=== PATIENT | male | born 1945 | race Caucasian/White ===

== ENCOUNTER 2022-11-03 05:23 | Emergency (ER) | payer MEDICARE, SELFPAY ==
--- NOTE | ~2022-11-03 | CT_ITS ---
EXAMINATION: CT ABDOMEN AND PELVIS WITHOUT CONTRAST CLINICAL INFORMATION: Left flank pain. History of prostate cancer. COMPARISON: None available. TECHNIQUE: Multidetector volumetric imaging was performed from the superior aspect of the liver through the pubic symphysis. Sagittal and coronal reformatted images were obtained on the technologist's workstation. This CT examination was performed using dose optimization techniques as appropriate, variously including the following: *Automated exposure control *Adjustment of mA and/or kV according to patient size (this includes techniques or standardized protocols for targeted exams where dose is matched to indication/reason for exam; i.e. extremities or head) *Use of iterative reconstruction technique DLP: 360 mGy-cm FINDINGS: LUNG BASES: The visualized lung bases are unremarkable. LIVER, GALLBLADDER, AND BILIARY TREE: The liver is normal in size, shape, and attenuation. No biliary ductal dilatation. There is a cyst identified in the caudate.. Multiple small stones layering in the gallbladder lumen. No wall thickening or inflammation. PANCREAS: Unremarkable. SPLEEN: Unremarkable. ADRENAL GLANDS: Unremarkable. KIDNEYS AND URETERS: The kidneys are normal in size, shape, and attenuation. No hydronephrosis, hydroureter, or calculi seen. No perinephric stranding. BLADDER: Partially distended without wall thickening. Air-fluid level internally. GASTROINTESTINAL TRACT: Moderate hiatal hernia. Normal caliber small bowel. No obstruction. Colonic diverticulosis present which is greatest at the sigmoid colon. No diverticulitis. No free air or free fluid. ABDOMINAL WALL: No significant hernia is appreciated. LYMPH NODES: Normal. VASCULAR: Infrarenal abdominal aorta measures up to 2.5 cm in AP dimension with mild atherosclerotic calcification. Proximal to this the aorta measures 1.8 cm. No specific follow-up recommended at this size. PELVIC VISCERA: Prostate not definitively seen. OSSEOUS STRUCTURES: No acute or suspicious osseous abnormality. Degenerative change throughout the spine and of both hips. CT/CT abdomen pelvis wo IV con IMPRESSION: 1. No acute findings in the abdomen or pelvis. No hydronephrosis or nephrolithiasis. 2. Cholelithiasis without evidence of acute cholecystitis. 3. Moderate hiatal hernia. 4. Colonic diverticulosis without diverticulitis. Fleischner guidelines were followed.
[2022-11-03 05:46] VITALS: BP 162/57; PULSE 58; RESP 18; TEMP 36.8; O2SAT 99; BMI 21.4
[2022-11-03 05:50] VITALS: BP 162/57; PULSE 58; RESP 18; TEMP 36.8; O2SAT 98
--- NOTE | 2022-11-03 05:59 | ED.BACK ---
HPI - Back Pain/Injury General Chief Complaint: Back Pain/Injury Stated Complaint: Back Pain Time Seen by Provider: 11/03/22 05:59 Related Data Previous Rx's Medication Instructions Recorded tramadol 50 mg tablet 50 mg PO Q6H PRN pain #20 tabs 11/03/22 Allergies Allergy/AdvReac Type Severity Reaction Status Date / Time No Known Allergies Allergy Verified 11/03/22 06:25 PMFSH Social History Social History Alcohol intake: former Smoked in Last 30 Days: No Substance Use Type: Marijuana Substance Use Frequency: Daily Last Used Substance: Days (ago) Advance Directives: No Advance Directives Information Provided: No Physical Exam Vital Signs: Vital Signs: Last Vital Signs Temp 98.3 F 11/03/22 05:50 Pulse 58 11/03/22 05:50 Resp 18 11/03/22 06:48 BP 162/57 H 11/03/22 05:50 Pulse Ox 98 11/03/22 05:50 O2 Del Method Room Air 11/03/22 05:50 BMI result Body Mass Index 21.4 Medications Administered Discontinued Medications Generic Name Dose Route Start Last Admin Trade Name Freq PRN Reason Stop Dose Admin Morphine Sulfate 4 mg 11/03/22 06:25 11/03/22 06:48 Morphine Sulfate 2 Mg/Ml Cartridge IVPUSH 11/03/22 06:26 4 mg ONCE ONE Administration Protocol Ondansetron HCl 4 mg 11/03/22 06:25 11/03/22 06:47 Ondansetron Hcl 4 Mg/2 Ml Vial IVPUSH 11/03/22 06:26 4 mg ONCE ONE Administration Medical Decision Making Medical Decision Making [facility] Narrative: Patient with low back pain likely muscular strain CT scan negative for acute pathology UA is pending but patient denied any urinary symptoms. Will discharge patient home on tramadol Lab Data [facility] Lab Attestation statement: I reviewed the patient's lab results. 11/03/22 06:00 11/03/22 06:00 Labs: Lab Results 11/03/22 11/03/22 Range/Units 06:00 06:00 WBC 7.0 (4.8-10.8) X10*3/uL RBC 4.54 L (4.60-5.80) X10*6/uL Hgb 13.8 L (14.0-18.0) g/dl Hct 39.9 L (42.0-52.0) % MCV 87.9 (80.0-98.0) fL MCH 30.4 (27.0-33.0) pg MCHC 34.6 (31.0-36.0) g/dl RDW 12.5 (11.0-16.0) % Plt Count 185 (160-400) X10*3/uL MPV 9.9 (9.4-12.4) fL Immature Gran % (Auto) 0.1 (0.0-0.4) % Neut % (Auto) 56.4 (45-73) % Lymph % (Auto) 32.6 (20-40) % [place] % (Auto) 10.2 (2-11) % Eos % (Auto) 0.3 (0-4) % Baso % (Auto) 0.4 (0-2) % Lymph # (Auto) 2.3 (1.2-4.9) X10*3/uL [place] # (Auto) 0.7 (0.1-1.2) X10*3/uL Eos # (Auto) 0.0 (0.0-0.4) X10*3/uL Baso # (Auto) 0.0 (0.0-0.2) X10*3/uL Abs Immat Gran (auto) 0.01 (0.00-0.03) X10*3/uL Absolute Neuts (auto) 3.9 (2.0-8.3) x10*3/uL Absolute Nucleated RBC 0.000 (0.0-0.012) X10*3/uL Nucleated RBC % (auto) 0.0 (0.0-0.2) /100WBC Sodium 135 (135-145) mmol/L Potassium 4.5 (3.3-5.1) mmol/L Chloride 100 (96-108) mmol/L Carbon Dioxide 24 (22-29) mmol/L Anion Gap 16 (12-20) BUN 17 H (9-16) mg/dL Creatinine 0.95 (0.5-1.4) mg/dL Estim Creat Clear Calc 62.5 Estimated GFR > 60 Random Glucose 97 (60-115) mg/dL Calcium 9.5 (8.4-10.2) mg/dL Total Bilirubin 1.2 H (0.0-1.0) mg/dL AST 26 (5-37) U/L ALT 9 (0-40) U/L Alkaline Phosphatase 46 (39-117) U/L Total Protein 7.1 (6.5-8.0) g/dL Albumin 4.4 (3.5-5.0) g/dL Radiology Impression Discussion of test interpretation with radiology: I have reviewed the radiologist's reading. Radiologist Impression: CT/CT abdomen pelvis wo IV con IMPRESSION: 1.? No acute findings in the abdomen or pelvis. No hydronephrosis or nephrolithiasis. 2.? Cholelithiasis without evidence of acute cholecystitis. 3.? Moderate hiatal hernia. 4.? Colonic diverticulosis without diverticulitis. Discharge Plan Discharge Clinical Impression: Strain of lumbar region Patient Disposition: Home, Self-Care Instructions: Low Back Strain (ED) Additional Instructions: Take pain medication as prescribed Follow-up with PCP if not better Prescriptions: New tramadol 50 mg tablet 50 mg PO Q6H PRN (Reason: pain) Qty: 20 0RF
[2022-11-03 06:04] LABS: MANUAL DIFF FLAG NO
[2022-11-03 06:06] LABS: Basophils Percent Auto 0.4 % (0-2); Eosinophils Percent Auto 0.3 % (0-4); Hematocrit 39.9 % (42.0-52.0); Hemoglobin 13.8 g/dl (14.0-18.0); Imm Gran Abs Auto 0.01 X10*3/uL (0.00-0.03); Imm Gran Pct Auto 0.1 % (0.0-0.4); Lymphocytes Absolute Auto 2.3 X10*3/uL (1.2-4.9); Lymphocytes Percent Auto 32.6 % (20-40); Mean Corpuscular HGB Conc 34.6 g/dl (31.0-36.0); Mean Corpuscular Hemoglobin 30.4 pg (27.0-33.0); Mean Corpuscular Volume 87.9 fL (80.0-98.0); Mean Platelet Volume 9.9 fL (9.4-12.4); Monocytes Absolute Auto 0.7 X10*3/uL (0.1-1.2); Monocytes Percent Auto 10.2 % (2-11); Neutrophils Absolute Auto 3.9 x10*3/uL (2.0-8.3); Neutrophils Percent Auto 56.4 % (45-73); Platelet Count 185 X10*3/uL (160-400); Red Blood Count 4.54 X10*6/uL (4.60-5.80); Red Cell Distribution Width 12.5 % (11.0-16.0)
[2022-11-03 06:24] LABS: Alanine Aminotransferase 9 U/L (0-40); Albumin Level 4.4 g/dL (3.5-5.0); Alkaline Phosphatase 46 U/L (39-117); Anion Gap 16 (12-20); Aspartate Amino Transferase 26 U/L (5-37); Bilirubin Total 1.2 mg/dL (0.0-1.0); Blood Urea Nitrogen 17 mg/dL (9-16); Calcium 9.5 mg/dL (8.4-10.2); Carbon Dioxide 24 mmol/L (22-29); Chloride 100 mmol/L (96-108); Creatinine Clr Calc Pharmacy 62.5; Estimated Glomerular Filt Rate > 60; Glucose Random 97 mg/dL (60-115); Potassium 4.5 mmol/L (3.3-5.1); Sodium 135 mmol/L (135-145); Total Protein 7.1 g/dL (6.5-8.0)
[2022-11-03] MEDS: ondansetron HCL 4 MG/2 ML VIAL IVPUSH (06:47)
[2022-11-03 06:48] VITALS: RESP 18
[2022-11-03] MEDS: Morphine Sulfate 2 MG/ML CARTRIDGE 4 MG IVPUSH (06:48)
[2022-11-03 07:35] VITALS: BP 125/55; PULSE 48; RESP 20; TEMP 36.8; O2SAT 97
[2022-11-03 07:53] LABS: Appearance Urine Cloudy; Color Urine Yellow; Glucose Urine UA Negative (Negative); Leukocyte Esterase Urine Large (3+) (Negative); Nitrite Urine Positive (Negative); PH 5.5 (5.0-9.0); UMIC TRIGGER UACC YES; Urine Blood Small (1+) (Negative); Urine Ketones 40 mg/dL (Negative); Urine Protein 30 (1+) mg/dL (Neg-Trace)
[2022-11-03 08:06] LABS: Bacteria Urine 4+ (None Seen); Hyaline Casts Urine 0-2 /LPF (0-2); RBC Urine 0-2 /HPF (0-2); Squamous Epithelial Cell Urine 0-2 /HPF (0-2); UACC Culture Trigger YES; WBC Urine >50 /HPF (0-5)
[2022-11-03] MEDS: cefTRIAXone sodium 1 GM in 0.9 % Sodium Chloride 50 ML IV (08:56)
== END 2022-11-03 09:52 | disposition home or self-care (01) ==
PROVIDERS: Internal Medicine; Emergency Provider Emergency Medicine; PCP Internal Medicine
DX: M54.50 Low back pain, unspecified (principal); R10.2 Pelvic and perineal pain; Z79.899 Other long term (current) drug therapy
CPT/HCPCS: 36415; 74176; 80053; 81001; 85025; 87086; 96365; 96375; 99284; J0696; J2270; J2405